=== PATIENT | male | born 1945 | race Caucasian/White ===

== ENCOUNTER 2017-01-15 12:07 | Inpatient (IN) | payer MEDICARE, OTHER ==
[~2017-01-15] VITALS: Ht 157.5 cm; Wt 71.6 kg
[2017-01-15] VITALS (11 sets, daily range): BP systolic 110–176; BP diastolic 72–100; PULSE 74–110; RESP 17–24; O2SAT 95–99
[~2017-01-15 12:07] MED LIST: ALLO300T29 PO; AMLO5TAB90 PO; ASPI81TA40 PO; ATOR40TA37 PO; HCTZ25 PO; HYDR1TAB69 PO; MELO7.5T3 PO; NOMED; OMEP40CA25 PO; PARO25TA5 PO; SYN25 PO; TADA10TA PO; VAL2 PO; VAS10 PO
--- NOTE | 2017-01-15 12:18 | ED.REPORT ---
HPI-Neurologic Deficit Date of Service Jan 15, 2017 ED Provider: Fabián Haque DO The patient is a 71 year old male who presents to the ED due to diffuse shaking onset earlier today. Associated symptoms include weakness in his legs, muscle cramping, twitching, and a headache last night. Pt is able to ambulate without difficulty although he states that his legs feel "heavy." His reports that he was been getting severe muscle cramps for the past several months. He denies slurred speech, change in vision, numbness, chest pain, sob, vomiting, diarrhea, cough, dysuria, and cold symptoms. The last time he felt completely normal was yesterday evening. Pt is currently on gabapentin for trigeminal neuralgia. His baseline BP is around 120/60. Nursing Notes Stated Complaint: BODY WEAKNESS Chief Complaint: Neuro Symptoms/ Deficits Nursing Notes Reviewed: Yes Allergies: Coded Allergies: No Known Allergies (Verified , 09/22/13) Scheduled Allopurinol-Expunged Drug, Do Not Renew! (Allopurinol-Expunged Drug, Do Not Renew!) 300 Mg Tablet 300 MG PO DAILY AmLODIPine-Expunged Drug, Do Not Renew! (AmLODIPine-Expunged Drug, Do Not Renew! ) 5 Mg Tablet 5 MG PO DAILY Aspirin-Expunged Drug, Do Not Renew! (Aspirin-Expunged Drug, Do Not Renew!) 81 Mg Tab.chew 81 MG PO DAILY Atorvastatin-Expunged Drug, Do Not Renew! (Atorvastatin-Expunged Drug, Do Not Renew!) 40 Mg Tablet 40 MG PO DAILY Enalapril-Expunged Drug, Do Not Renew! (Enalapril-Expunged Drug, Do Not Renew!) 10 Mg Tablet 20 MG PO DAILY Febuxostat (Uloric) 40 Mg Tablet 40 MG PO QAM Gabapentin (Gabapentin) 600 Mg Tablet 600 MG PO BID HCTZ-Expunged Drug, Do Not Renew! (Hydrodiuril-Expunged Drug, Do Not Renew!) 25 Mg Tablet 25 MG PO DAILY Levothyroxine-Expunged Drug, Do Not Renew! (Synthroid-Expunged Drug, Do Not Renew!) 25 Mcg Tablet 50 MCG PO DAILYAC 0.025 MG = 25 MCG Meloxicam-Expunged Drug, Do Not Renew! (Meloxicam-Expunged Drug, Do Not Renew!) 7.5 Mg Tablet 15 MG PO DAILY Omeprazole-Expunged Drug, Do Not Renew! (Omeprazole-Expunged Drug, Do Not Renew! ) 40 Mg Capsule.dr 40 MG PO DAILY Paroxetine Hc-Expunged Drug, Do Not Renew! (Paxil Cr-Expunged Drug, Do Not Renew !) 25 Mg Tab.sr.24h 25 MG PO DAILY Tadalafil (Cialis) 10 Mg Tablet 10 MG PO DAILY Scheduled PRN Diazepam-Expunged Drug, Do Not Renew! (Diazepam-Expunged Drug, Do Not Renew!) 2 Mg Tablet 2 MG PO PRN For Anxiety Hydrocod/APAP-Expunged, Do Not Renew! (VICODIN 5/500-Expunged Drug, Do Not Renew ) 1 Each Tablet 1 TAB PO Q6H PRN PRN For Pain Take every 6 hours as needed for pain. Miscellaneous Medications No Historical Medication (No Historical Medication) Ea General Time Seen by Provider: 12:03 Chief Complaint Other (bilateral shaking in extremities) Hx Obtained From: Patient, Spouse Arrived By: Walk-in Sudden in Onset?: Yes Onset Occurred: 5 - 8 hours ago Symptom Duration: Since onset Progression Since Onset: Gradually worsening Recent Healthcare: No recent doctor visit, No recent hospitalization Similar Sx Previous: No Past Medical History Past Medical History trigeminal neuralgia Past Surgical History laminectomy /fx legs Smoking History Unknown if Ever Smoker Social History Alcohol Use: 1-3 per week Other Social History: Good social support, , Local resident Review of Systems Respiratory: Denies: Non-productive cough, Shortness of breath Cardiovascular: Denies: Chest pain GI: Denies: Diarrhea, Vomiting Neurologic: Reports: Dizziness, Headache, Lightheaded, Shaking, Weakness, Denies: Change LOC, Numbness, Problem walking, Seizure, Slurred speech Complete sys rev & neg: except as marked. Ears / Nose / Throat: Denies: Nasal congestion Male: Denies Dysuria Physical Exam Initial Vital Signs Vital Signs (First) Date Time Temp Pulse Resp B/P Pulse Ox O2 Delivery O2 Flow Rate FiO2 01/15/17 12:16 36.9 110 18 176/100 99 Room Air Initial VS: Reviewed General/Constitutional: Awake, Alert, Cooperative, Not toxic appearing Head / Eyes: Atraumatic, Normocephalic, PERRL, EOMI Respiratory / Chest: Atraumatic, No respiratory distress Cardiovascular: Heart sounds NL, No gallop, No murmurs, No rubs hypertensive Neurologic: Oriented X3, Speech NL, No motor deficits Neck: Atraumatic, Supple Abdomen: Atraumatic, Soft Upper Extremity / MS: Atraumatic, Inspection NL, No deformity Lower Extremity / Pelvis / MS: Atraumatic, Inspection NL, No deformity Skin: Atraumatic, Warm, Dry Interpretation & Diagnostics Lab Results Interpretation Result Diagram: 01/15/17 1214 01/15/17 1214 Test 01/15/17 12:14 01/15/17 13:22 White Blood Count 9.4th/mm3 (3.8-10.1) Red Blood Count 4.81mil/mm3 (4.40-5.80) Hemoglobin 15.0g/dL (13.8-17.2) Hematocrit 41.6% (41.0-50.0) Mean Corpuscular Volume 86.5fL (81-100) Mean Corpuscular Hemoglobin 31.2pg (27.0-35.0) Mean Corpuscular Hemoglobin Concent 36.1% (32.0-37.0) Red Cell Distribution Width 12.0% (12.3-15.4) Platelet Count 337bil/L (150-400) Neutrophils (%) (Auto) 72.0% (40-74) Lymphocytes (%) (Auto) 15.5% (14-46) Monocytes (%) (Auto) 10.6% (4-12) Eosinophils (%) (Auto) 0.8% (0-5) Basophils (%) (Auto) 0.4% (0-3) Sodium Level 126mEq/L (134-144) Potassium Level 4.9mEq/L (3.5-5.2) Chloride Level 89mEq/L (97-108) Carbon Dioxide Level 20mmol/L (18-29) Blood Urea Nitrogen 20mg/dL (8-27) Creatinine 1.21mg/dL (0.76-1.27) Estimat Glomerular Filtration Rate 63mL/min (>59) Glucose Level 96mg/dL (60-99) Calcium Level 9.3mg/dL (8.5-10.1) Magnesium Level 1.3mg/dL (1.6-2.6) Total Bilirubin 1.0mg/dL (0.0-1.2) Aspartate Amino Transf (AST/SGOT) 31U/L (0-50) Alanine Aminotransferase (ALT/SGPT) 31U/L (0-44) Alkaline Phosphatase 99U/L (25-160) Troponin T < 0.010ug/L (0.0-0.011) Total Protein 7.5g/dL (6.4-8.4) Albumin 4.8g/dL (3.4-5.0) Hold Johns Top Tube Received (Received) Urine Osmolality 177mOs/kH2O (250-1200) Urine Random Creatinine 25mg/dL (22-328) Urine Random Sodium 24mEq/L Hold Urine Received (Received) Osmolality 270 (275-300) ECG Interpretation ECG Interpretation: nonspecific ST changes Time: 01:06 Interpreted by: ED physician Normal ECG Interpretation: Normal sinus rhythm (rate 78) X-Ray Chest Interpretation Chest Xray Interpretation: IMPRESSION: Negative chest. No acute cardiopulmonary process is evident. Dictated by: Tru Carrillo M.D. on 01/15/2017 at 13:21 Approved by: Tru Carrillo M.D. on 01/15/2017 at 13:22 View: Portable Interpretation / Wet Read by: Interpret - Radiologist Re-Eval/Medical Decision Med Decision/Clinical Course Symptomatic hyponatremia. Will admit. Re-Evaluation/Progress : Time of Eval: 13:18 Re-Evaluation/Progress Note: Pt rechecked. Informed pt of low sodium levels and need for admission. Pt understands and agrees with plan. All questions addressed. Plan to discuss with surface miner. NIH Stroke Scale : Level of Consciousness: Alert and responsive (0) Ask Month & Age: Both questions right (0) Open/Close Eyes/Hand Cooky Packer: Performs both tasks (0) Horizontal EO Movements: None (0) Visual Nagel: No visual loss (0) Facial Palsy: Normal symmetry (0) Right Arm Motor Drift (10s): No drift 10 sec (0) Left Arm Motor Drift (10s): No drift 10 sec (0) Right Leg Motor Drift (5s): No drift 5 sec (0) Left Leg Motor Drift (5s): No drift 5 sec (0) Limb Ataxia FNF/Heel-Stratton: No ataxia (0) Sensation (Arms/Legs/Face): No sensory loss (0) Language Aphasia: No aphasia, normal (0) Dysarthria: No dysarthria, normal (0) Extinction/Inattention: No exctinct/inattent (0) NIHSS Score: 0 Time NIHSS Performed: 12:15 Date NIHSS Performed: Jan 15, 2017 Consultation #1: Referral / Consult Name: Alvaro Najera DO Consulted With: Nephrology Call Returned at: 13:33 Note: Case discussed. Dr. Najera advises to not give the patient IV fluids. Discontinue hydrochlorothiazide Consultation #2: Referral / Consult Name: Wallace Noriega DO Consulted With: Hospitalist Call Returned at: 13:58 Accountant Clerk: Accepts admit Note: Case discussed. Dr. Noriega accepts admit. Counseled Regarding: Diagnosis, Lab results, Need for admission Discharge & Departure Impression: Primary Impression: Hyponatremia Disposition: ADMITTED TO HOSPITAL Discharge Condition All VS Reviewed: Yes Condition: Stable Referrals: Kevin Mendoza MD (PCP) Scribe Attestation Portion of this note were transcribed by Helen Vazquez. I, Dr. Haque, personally performed the history, physical exam, and medical decision-making: I reviewed and confirmed the accuracy for the information in the transcribed note. Signed by: annalee Pressley, 01/15/17 1300 copies to: Kevin Mendoza MD, Timothy S DO Jan 15, 2017 12:18 Helen Vazquez Jan 15, 2017 12:20
[2017-01-15] MEDS ORDERED: 0.9% Sodium Chloride 1,000 ML IV ONE (12:30)
[2017-01-15 12:34] LABS: BASOPHILS % (AUTO) 0.4 % (0-3); EOSINOPHILS % (AUTO) 0.8 % (0-5); MONOCYTES % (AUTO) 10.6 % (4-12); Mean Corpuscular Hemoglobin 31.2 pg (27.0-35.0); Mean Corpuscular Volume 86.5 fL (81-100); Platelet Count 337 bil/L (150-400)
[2017-01-15 12:57] LABS: Magnesium 1.3 mg/dL (1.6-2.6)
[2017-01-15 13:01] LABS: TROPONIN T < 0.010 ug/L (0.0-0.011)
[2017-01-15] MEDS ORDERED: Magnesium Sulf 2 Gm/50mL Water 2 GM in IV Premix 1 EACH IV ONE (13:10)
[2017-01-15] MEDS ORDERED: FEBU40TA PO (13:32)
[2017-01-15] MEDS ORDERED: GABA600T2 PO (13:32)
[2017-01-15 14:09] LABS: OSMOLALITY, URINE 177 mOs/kH2O (250-1200)
[2017-01-15] MEDS ORDERED: Polyethylene Glycol (PEG) 17 Gm Powder PO PRN (14:10)
[2017-01-15] MEDS ORDERED: Alum-Mag Hydrox-Simeth 30 mL Suspension PO PRN (14:10)
[2017-01-15] MEDS ORDERED: Ondansetron 2 mg/mL 2 mL Inj IVPUSH PRN (14:10)
--- NOTE | 2017-01-15 14:15 | PCM.HPMED ---
Subjective Date of Service Jan 15, 2017 Primary Provider: Admitting Physician: Primary Care Physician: Kevin Mendoza MD Attending Physician: Chief Complaint: Muscle spasms History of Present Illness: Patient is a 71-year-old male in overall excellent health past medical history significant for hypertension hyperlipidemia gout and hypothyroidism presenting today for history of worsening muscle cramping and spasm involving his upper and lower extremities. Patient notes the symptoms have been present for many months but have worsened progressively and became so severe over the last couple days especially earlier today that he finally needed to seek medical attention. Initially he believed he was not getting enough fluid and when drinking more water was not helpful he transitioned to Pedialyte she thought were more effectively replete his electrolytes, this to however was not effective and he notes the muscle spasms have only worsened in past weeks. He denies any overt chest pain though the muscles of his chest as well have been intermittently twitchy. Additionally denies any numbness or weakness of either upper or lower extremities denies any slurring of speech or visual changes lightheadedness or changes in cognition. He does experience intermittent headaches related to trigeminal neuralgia for which he takes gabapentin for this is been stable at the very least. Does not drink a large amount of alcohol but does note drinking 3 beers yesterday, that this is an unusual event for him. He notes he drinks probably about 2 L of fluid per day which is now predominantly Pedialyte, not believe he drinks an excessive amount. He is noted no changes in his bowels denies diarrhea or constipation. Additionally denies any fever sweats or chills also denies any shortness of breath. Is able to move all extremities he notes feeling a heaviness or weakness in both upper and lower limbs which is also seem to progress over the past weeks to months. During my examination on hospital floor he is lying comfortable in his hospital bed as he recounts history. Review of Systems: A 10 point review of systems was conducted and entirely negative excepting pertinent positives and negatives included above history of present illness Allergies Coded Allergies: allopurinol (Verified Allergy, Unknown, Feels unwell, 01/15/17) Home Medications Uloric AmLODIPine 5 Mg Tablet 5 MG PO DAILY Aspirin 81 Mg Tab.chew 81 MG PO DAILY [id number] Mg Tablet 40 MG PO DAILY Enalapril- 10 Mg Tablet 20 MG PO DAILY Febuxostat (Uloric) 40 Mg Tablet 40 MG PO QAM Gabapentin (Gabapentin) 600 Mg Tablet 600 MG PO BID HCTZ- 25 Mg Tablet 25 MG PO DAILY Levothyroxine 25 Mcg Tablet 50 MCG PO DAILYAC 0.025 MG = 25 MCG Meloxicam-7.5 Mg Tablet 15 MG PO DAILY Omeprazole-40 Mg Capsule.dr 40 MG PO DAILY Paroxetine Hc- 25 Mg Tab.sr.24h 25 MG PO DAILY Tadalafil (Cialis) 10 Mg Tablet 10 MG PO DAILY Scheduled PRN Diazepam- 2 Mg Tablet 2 MG PO PRN For Anxiety Hydrocod/APAP-1 Each Tablet 1 TAB PO Q6H PRN PRN For Pain Take every 6 hours as needed for pain. PMH trigeminal neuralgia Hypertension Hyperlipidemia Hypothyroidism Gout Surgical History laminectomy FX leg Melanoma removal Mastoid surgery Family History Mother had Parkinson's disease Social History Hx Alcohol Use: Yes Hx Substance Use: Yes (Beer, socially. Denies daily or frequent use. ) Hx Tobacco Use: No Smoking Status: Unknown if Ever Smoker Exam Vital Signs Vital Sign - Last Date Time Temp Pulse Resp B/P Pulse Ox O2 Delivery O2 Flow Rate FiO2 01/15/17 13:44 81 24 110/74 Room Air 01/15/17 13:09 96 01/15/17 12:16 36.9 General: Alert, Oriented X3, Cooperative, No Acute Distress Eyes: PERRLA, EOMI Mouth: Mucous Membr Moist/Plum Neck: Supple Chest & Lungs: Clear to auscultation & percussion, No adventitious breath sounds Cardiovascular: Regular Rate/Rhythm Abdomen: Non-tender, Non-distended Extremities: No cyanosis/clubbing/edma bilat, Other (there is generalized spasm perhaps mildly appreciated but more significantly experienced as a sensation by patient) Neurological: Grossly Neurologically Intact, Cranial Nerves 2-12 Intact, Normal Speech, Cerebellar Function nl Finger-Nose Lab and Diagnostics Result Diagram: 01/15/17 1214 01/15/17 1214 Assessment & Plan This 71-year-old male past medical history significant for hypertension, hyperlipidemia, hypothyroidism, and trigeminal neuralgia presenting with progressive history of muscle tremor and spasms noted to be hyponatremic on presentation admitted for further medical evaluation and management. 1. Hyponatremia of unknown chronicity - Patient states his last routine lab work was done in August of this year, proximally 5 months prior was noted to be normal at that time. He has no history of hyponatremia in the past and is unclear to discern if this is a more acute problem or patient's symptoms indeed marked to beginning of his low sodium levels which would have been months prior - Nephrology has been consulted and their advice is greatly appreciated. On their recommendations we will keep patient fluid restricted to 1200 cc of fluid per day - We will continue to closely monitor sodium levels - Monitor patient on telemetry for any evidence of arrhythmia - Initial osmolality and sodium studies of serum and urine may support SIADH given lowers urine osmolality and serum. - We will hold hydrochlorothiazide at home appraisal which both may exacerbate this condition - Again appreciating the consultation of nephrology we will consider a possible underlying etiologies 2. Hypertension - Blood pressure stable at this time we will continue patient's other blood pressure medications excepting hydrochlorothiazide 3. Hypothyroidism - An alternative cause for patient's weakness and spasticity may be related to thyroid functioning - Continue patient's home dosage of levothyroxine with iron studies are pending 4. Trigeminal neuralgia - We will continue gabapentin at this time condition appears stable Disposition: Given severity of symptoms and of depressed sodium level anticipate patient will be a greater than 2 mid nights for achieving medical stabilization therefore made a full admission. Pain Evaluation: Adequate Pain Control GI Prophylaxis: Not indicated VTE Mechanical Devices: Anti-Embolic stockings Resuscitation Status: CPR: Attempt Resuscitation Time spent 55 minutes Wallace Noriega DO Jan 15, 2017 14:15
--- NOTE | 2017-01-15 14:24 | DRSVH ---
PROCEDURE: X-RAY CHEST ONE VIEW, PORTABLE ([id number]) INDICATIONS: weakness TECHNIQUE: One view of the chest was acquired. COMPARISON: None. FINDINGS: Surgical changes and devices: None. Lungs and pleura: No pleural effusions or pneumothorax. Lungs are clear. Mediastinum: Mediastinal contours appear normal. Heart size is normal. Bones and chest wall: No suspicious bony lesions. Overlying soft tissues appear unremarkable. IMPRESSION: Negative chest. No acute cardiopulmonary process is evident. Dictated by: Tru Carrillo M.D. on 01/15/2017 at 13:21 Approved by: Tru Carrillo M.D. on 01/15/2017 at 13:22
--- NOTE | 2017-01-15 15:12 | NUR ---
Admission Patient arrived from ED to room. Does admit to feeling unsteady on his feet. Describes them as feeling "heavy". Oriented patient to room and hospital policies. Denies pain. Admits to feeling "tired". Continue frequent rounding.
--- NOTE | 2017-01-15 16:11 | PCM.CHPMED ---
Subjective Date of Service: Jan 15, 2017 Provider requesting consult: Fabián Haque DO Primary Physician: Admitting Physician: Wallace Noriega DO Primary Care Physician: Kevin Mendoza MD Attending Physician: Wallace Noriega DO Chief Complaint: Chief Complaint: "Muscle twitching" History of Present Illness: NEPHROLOGY CONSULTATION NOTE Patient is a 71 year old male with a history of HTN, HLP, hypothyroidism, and gout. He presented to [facility] on 01/15/17 after a near syncopal episode that occurred while driving earlier today. The patient and his were returning from [facility]. As he was driving down [employer] [address] he "passed out" and his quickly awakened him. This was enough for his to bring him to the ED. Last night he reports feeling a sensation of twitching and jumping in his nerves and muscles from his neck to his waist. This kept him awake all night and was ongoing when I saw the patient in the ED. Patient also feels like his legs are heavy and while he had a mild headache last night, has had no headache today. There have been no recent sick contacts and he has not had any cold or flu-like symptoms. He denies any visions changes, dizziness/lightheadedness, nausea, vomiting, chest pain, shortness of breath, fever or chills. He has never experienced a sensation like this before but has been struggling with muscle cramping for the last four months. Labs done in August were reportedly normal, but none of that data is available to me today. He denies any recent diet or appetite changes. He has been trying to keep himself hydrated both with water and Pedialyte. The patient has never experienced anything like this before. He does not recall a time where he was told his electrolytes were abnormal. He denies any history of kidney disease both personally and in his family. He has never seen a crocodile farmer nor does he know anyone in his family that has. Review of Systems: Constitutional: Reports: Weakness, Denies: Chills, Fever Eyes: Denies: Blurred Vision, Double Vision Neck: Denies: Pain Cardiovascular: Denies: Chest Pain, Edema, Irregular Heart Rate Respiratory: Denies: Cough, SOB with Exertion, Shortness of Breath Gastrointestinal: Denies: Abdominal Pain, Nausea, Vomiting Genitourinary: Denies: Dysuria, Hematuria Skin: Denies: Itching, Rash Neurological: Denies: Confusion, Dizziness, Seizures PMH Past Medical History Hypertension (diagnosed at age 21) Hyperlipidemia Gout Hypothyroidism GERD History of prostatitis Depression with anxiety Osteoarthritis Surgical 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 Tonsillectomy Back surgery Home Medications From the medical record (patient struggled to verify all the info): Allopurinol 300 mg daily Amlodipine 5 mg daily Hydrochlorothiazide 25 mg daily Aspirin 81 mg daily Atorvastatin 40 mg daily Diazepam 2 mg PRN Enalapril 10 mg daily Uloric 40 mg daily Gabapentin 600 mg BID Levothyroxine 50 mcg daily Meloxicam 7.5 mg PRN Omeprazole 40 mg daily Paxil 25mg daily Cialis 10 mg daily Vicodin 5/500 mg Q6 PRN Allergies: Coded Allergies: No Known Allergies (Verified , 09/22/13) Family History Family History No known family history of kidney or electrolyte disorders Hypertension on both sides of the family Social History Hx Alcohol Use: Yes (1-2 mixed drinks daily, up to 3-4 on the weekends)Hx Substance Use: NoHx Tobacco Use: No Smoking Status: Never Smoker Living Arrangement: with Family Exam Vital Signs Vital Sign - Last Date Time Temp Pulse Resp B/P Pulse Ox O2 Delivery O2 Flow Rate FiO2 01/15/17 15:16 36.9 81 18 122/84 95 Room Air General: Alert, Oriented X3, Cooperative, No Acute Distress Head: Normal Eyes: PERRLA, EOMI, Scleral Anicteric Mouth: Mucous Membr Moist/[place]odgen Neck: Supple, No Thyromegaly Chest & Lungs: Clear to auscultation & percussion, No adventitious breath sounds Cardiovascular: Regular Rate/Rhythm, No Murmurs/Rubs/Gallops Pulses: Radial (normal bilaterally), Dorsalis Pedis (normal bilaterally) Abdomen: Non-tender, Non-distended, No masses, No hepatosplenomegaly, Normoactive bowel tones Genitourinary: [place] Absent Extremities: No cyanosis/clubbing/edma bilat Skin: Other (apparent suntan; normal skin turgor) Neurological: Grossly Neurologically Intact, Cranial Nerves 2-12 Intact, Normal Speech Lab and Diagnostics Result Diagram: 01/15/17 1214 01/15/17 1214 Assessment & Plan Assessment Patient is a 71 year old male with a history of HTN, HLP and gout. Presented to [facility] after near-syncopal episode with muscle twitching. Hyponatremia and hypomagnesemia noted on labs. Admitted obs for further management. Nephrology service consulted due to hyponatremia. 1) Hyponatremia, presumed acute. 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 - No baseline outpatient labs found. Serum sodium 126. Urine sodium 24. Serum Osm 270. Urine Osm 177. - Stop hydrochlorothiazide and omeprazole. - Fluid restrict to 1200 cc. - No additional IV fluids. - Repeat BMP tomorrow AM. 2) Hypomagnesemia. - Repleted in ED. - Continue to monitor with labs. 3) Hypertension. - Will need to monitor BP closely as we are discontinuing HCTZ. - Close outpatient follow up with PCP to determine future medication regimen. Problems: Nelida Velazquez DO Jan 15, 2017 15:42
[2017-01-15] MEDS ORDERED: AMLO5TAB2 PO (16:43)
[2017-01-15] MEDS ORDERED: DIAZ2TAB2 PO (16:43)
[2017-01-15] MEDS ORDERED: LIP40 PO (16:43)
[2017-01-15] MEDS ORDERED: ASPI-973 PO (16:43)
[2017-01-15] MEDS ORDERED: HYDR25TA4 PO (16:45)
[2017-01-15] MEDS ORDERED: ENAL20TA PO (16:45)
[2017-01-15] MEDS ORDERED: OMEP40CA36 PO (16:49)
[2017-01-15] MEDS ORDERED: MELO-253 PO (16:49)
[2017-01-15] MEDS ORDERED: TADA10TA PO (16:56)
[2017-01-15] MEDS ORDERED: LEVO50TA6 PO (17:01)
[2017-01-15] MEDS ORDERED: PARO25TA15 PO (17:01)
--- NOTE | 2017-01-15 19:47 | NUR ---
HOME MEDICATIONS Hospital pharmacy does not stock pts Uloric and Paxil medications. RN asked pt if someone could bring in his home medications for hospital use. Pt will call family member to bring medications, then meds will be verified w/ pharmacy.
[2017-01-15 19:51] LABS: APPEARANCE,URINE CLEAR (CLEAR,HAZY); COLOR,URINE YELLOW (YELLOW); OCCULT BLOOD,URINE NEGATIVE (NEGATIVE); UROBILINOGEN,URINE NORMAL (NORMAL)
[2017-01-16] VITALS (7 sets, daily range): BP systolic 105–122; BP diastolic 69–81; PULSE 64–77; RESP 16–18; O2SAT 93–99
[2017-01-16 06:39] LABS: Magnesium 1.9 mg/dL (1.6-2.6)
[2017-01-16] MEDS ORDERED: PAROXETINE HCL 25 MG PO SCH (08:30)
--- NOTE | 2017-01-16 11:57 | NUR ---
Social Work-initial assessment/ discharge: Data:See initial assessment. Pt is a 71 y/o male who was admitted on 01/15/17 for hyponatremia per H&P. Pt's insurance is [facility] and [facility] and PCP is Kevin Lombardi MD. EMR reviewed. Pt's readmission score is 3. SW met with pt and at bedside, SW role explained. Pt is alert and oriented x3. Pt resides at home with his where he remains independent with ADls. Pt drives and does not use any DME. Pt has no HH Or SNF history. Pt has no reinforcing bar setter care or VA benefits. SW discussed DPOA/ advanced directive, pt confirms they have completed this, SW enocuraged a copy to be brought in. pt's to provide transport home. Pt has been up independent in his room. No needs identified. All updated and agreeable to plan. Assessment:pt who is independent at baseline. Plan:Pt to discharge home today via POV. No needs identified. All updated and agreeable to plan. ALLEN Jones Addendum: 01/16/17 at 1239 by JOE HERNANDEZ SS Amended: Links added. Addendum: 01/16/17 at 1627 by JOE HERNANDEZ SS SW updated pt is not discharging today. SW will continue to follow. ALLEN Jones
--- NOTE | 2017-01-16 16:36 | PCM.PNMED ---
Subjective Date of Service Jan 16, 2017 Subjective Patient reports no sick significant improvement overnight and muscle spasms. Continuing to experience intermittent locking of hands feet spasm of calf muscles with motion. This does not occur consistently but still concerning given tie frequency and unpredictability. Additionally notes still feeling much weaker than his previous baseline. He is denying fever chills over. Still urinating normally. Denies any shortness of breath or chest pain palpitations. Exam Vital Signs Vital Sign - Last Date Time Temp Pulse Resp B/P Pulse Ox O2 Delivery O2 Flow Rate FiO2 01/16/17 13:10 36.7 72 18 105/69 96 Room Air Intake and Output 01/15/17 01/15/17 01/16/17 Cumulative From/Thru 15:00 23:00 07:00 01/15/17 12:16 - 01/16/17 06:27 Intake Total 1050 ml 400 ml 200 ml 1650 ml Output Total 800 ml 650 ml 1800 ml 3250 ml Balance 250 ml -250 ml -1600 ml -1600 ml Intake Oral 400 ml 200 ml 600 ml IV Total 1050 ml 1050 ml Output Urine Total 800 ml 650 ml 1800 ml 3250 ml # Voids 1 1 Exam General: Alert, Oriented X3, Cooperative, No Acute Distress Eyes: PERRLA, EOMI Mouth: Mucous Membr Moist/[place] Abdomen: Non-tender, Non-distended Extremities: No overt muscle spams noted on my examination, but pt report subjectively feeling facilitations, notes previous hands had "locked up" Neurological: Grossly Neurologically Intact IVs and Medications Medications Reviewed: Medications were reviewed in detail Lab and Diagnostics Result Diagram: 01/15/17 1214 01/16/17 0604 Assessment & Plan This 71-year-old male past medical history significant for hypertension, hyperlipidemia, hypothyroidism, and trigeminal neuralgia presenting with progressive history of muscle tremor and spasms noted to be hyponatremic on presentation admitted for further medical evaluation and management. 1. Hyponatremia of unknown chronicity - Patient states his last routine lab work was done in August of this year, proximally 5 months prior was noted to be normal at that time. He has no history of hyponatremia in the past and is unclear to discern if this is a more acute problem or patient's symptoms indeed marked to beginning of his low sodium levels which would have been months prior - Nephrology has been consulted and their advice is greatly appreciated. On their recommendations we will keep patient fluid restricted to 1200 cc of fluid per day. Believe patient to be stable for discharge as soon as today - We will continue to closely monitor sodium levels, improved overnight to 133, from 126 on admission. - Monitored patient on telemetry for any evidence of arrhythmia which did not present we will discontinue at this time with improving sodium. - Initial osmolality and sodium studies of serum and urine may support SIADH given lowers urine osmolality and serum. Await further considerations by renal specialist. - We will continue to hold hydrochlorothiazide which may exacerbate this condition 2. Muscle spasm - Etiology remains unclear - Even diffuse nature involving bilateral upper and lower extremities it certainly seems a possibility that this is related to electrolyte imbalance - Improvement of patient's sodium level has not led to improvement in condition at this time but it may be, Improved that improvement will be delayed somewhat and this was still the cause - Consider alternative diagnoses will be consulting neurology for further evaluation and recommendations. 3. Hypothyroidism - An alternative cause for patient's weakness and spasticity may be related to thyroid functioning - Continue patient's home dosage of levothyroxine with iron studies are pending 4. Trigeminal neuralgia - We will continue gabapentin at this time condition appears stable 5. Hypertension - Blood pressure stable at this time we will continue patient's other blood pressure medications excepting hydrochlorothiazide Disposition: Given severity of symptoms and of depressed sodium level anticipate patient will be a greater than 2 mid nights for achieving medical stabilization therefore made a full admission. Pain Evaluation: Adequate Pain Control GI Prophylaxis: Not indicated VTE Mechanical Devices: Anti-Embolic stockings Resuscitation Status: CPR: Attempt Resuscitation Time spent 30 minutes Wallace Noriega DO Jan 16, 2017 16:36
[2017-01-16] MEDS ORDERED: PAROXETINE 25 MG PO SCH (21:00)
--- NOTE | 2017-01-16 21:30 | NUR ---
Uneventful shift Labs improving. Next check in AM. Fluid restriction lifted. Tele monitoring continues. IND act in room. Reports only minor muscle spasms this AM.
[2017-01-17 00:56] VITALS: BP 106/72; PULSE 71; RESP 18; O2SAT 97
[2017-01-17 04:53] VITALS: BP 104/67; PULSE 68; O2SAT 97
--- NOTE | 2017-01-17 06:05 | NUR ---
Activity Pt up independent in room. Denies pain, stating does get muscle spasm in hands and legs. Call light within reach, frequent rounding.
[2017-01-17 06:09] VITALS: PULSE 79
[2017-01-17] MEDS ORDERED: ULORIC 40 MG PO SCH (08:30)
[2017-01-17 09:19] VITALS: PULSE 92
[2017-01-17 09:26] VITALS: BP 117/75; PULSE 82; RESP 18; O2SAT 96
--- NOTE | 2017-01-17 10:29 | PCM.DC.MED ---
Discharge Summary Date of Service Jan 17, 2017 Dates of Hospitalization Date of Hospital Admission Jan 15, 2017 at 14:23 Date of Discharge: Jan 17, 2017 Providers: Admitting Physician: Wallace Noriega DO Primary Care Physician: Kevin Mendoza MD Attending Physician: Wallace Noriega DO Diagnosis at Time of Discharge Diagnosis at Time of Discharge 1. Hyponatremia secondary to diuretic use (HCTZ) 2. Acute renal insufficiency: chronic condition. Follows with Nephrology out patient. 3. Hypertension. Consultations Nephrology- Dr. Najera Brief History Patient is a 71-year-old male in overall excellent health past medical history significant for hypertension hyperlipidemia gout and hypothyroidism presenting today for history of worsening muscle cramping and spasm involving his upper and lower extremities. Patient notes the symptoms have been present for many months but have worsened progressively and became so severe over the last couple days especially earlier today that he finally needed to seek medical attention. Initially he believed he was not getting enough fluid and when drinking more water was not helpful he transitioned to Pedialyte she thought were more effectively replete his electrolytes, this to however was not effective and he notes the muscle spasms have only worsened in past weeks. He denies any overt chest pain though the muscles of his chest as well have been intermittently twitchy. Additionally denies any numbness or weakness of either upper or lower extremities denies any slurring of speech or visual changes lightheadedness or changes in cognition. He does experience intermittent headaches related to trigeminal neuralgia for which he takes gabapentin for this is been stable at the very least. Does not drink a large amount of alcohol but does note drinking 3 beers yesterday, that this is an unusual event for him. He notes he drinks probably about 2 L of fluid per day which is now predominantly Pedialyte, not believe he drinks an excessive amount. He is noted no changes in his bowels denies diarrhea or constipation. Additionally denies any fever sweats or chills also denies any shortness of breath. Is able to move all extremities he notes feeling a heaviness or weakness in both upper and lower limbs which is also seem to progress over the past weeks to months. During my examination on hospital floor he is lying comfortable in his hospital bed as he recounts history. Hospital Course 1. Hyponatremia of unknown chronicity - Patient states his last routine lab work was done in August of this year, proximally 5 months prior was noted to be normal at that time. He has no history of hyponatremia in the past and is unclear to discern if this is a more acute problem or patient's symptoms indeed marked to beginning of his low sodium levels which would have been months prior - Nephrology has been consulted and their advice is greatly appreciated. On their recommendations we will keep patient fluid restricted to 1200 cc of fluid per day. Believe patient to be stable for discharge as soon as today - We will continue to closely monitor sodium levels, improved overnight to 133, from 126 on admission. - Monitored patient on telemetry for any evidence of arrhythmia which did not demonstrate any concerning findings. - We will continue to hold hydrochlorothiazide which may exacerbate this condition on discharge. - Condition resolved, Sodium 139 on day of discharge. 2. Muscle spasm - As condition resolved with stabilization of sodium level, this was most certainly the cause. - see MGMT plans noted above. 3. Hypothyroidism - An alternative cause for patient's weakness and spasticity may be related to thyroid functioning - Normal TSH and T4 studies noted. 4. Trigeminal neuralgia - We will continue gabapentin at this time condition appears stable 5. Hypertension - Blood pressure stable at this time we will continue patient's other blood pressure medications excepting hydrochlorothiazide Exam Vital Signs (Last) Date Time Temp Pulse Resp B/P Pulse Ox O2 Delivery O2 Flow Rate FiO2 01/17/17 09:26 36.9 82 18 117/75 96 Room Air Test 01/15/17 12:14 01/15/17 13:22 01/16/17 06:04 01/17/17 08:50 White Blood Count 9.4th/mm3 (3.8-10.1) Red Blood Count 4.81mil/mm3 (4.40-5.80) Hemoglobin 15.0g/dL (13.8-17.2) Hematocrit 41.6% (41.0-50.0) Mean Corpuscular Volume 86.5fL (81-100) Mean Corpuscular Hemoglobin 31.2pg (27.0-35.0) Mean Corpuscular Hemoglobin Concent 36.1% (32.0-37.0) Red Cell Distribution Width 12.0% (12.3-15.4) Platelet Count 337bil/L (150-400) Neutrophils (%) (Auto) 72.0% (40-74) Lymphocytes (%) (Auto) 15.5% (14-46) Monocytes (%) (Auto) 10.6% (4-12) Eosinophils (%) (Auto) 0.8% (0-5) Basophils (%) (Auto) 0.4% (0-3) Total Bilirubin 1.0mg/dL (0.0-1.2) Aspartate Amino Transf (AST/SGOT) 31U/L (0-50) Alanine Aminotransferase (ALT/SGPT) 31U/L (0-44) Alkaline Phosphatase 99U/L (25-160) Troponin T < 0.010ug/L (0.0-0.011) Total Protein 7.5g/dL (6.4-8.4) Albumin 4.8g/dL (3.4-5.0) Thyroid Stimulating Hormone (TSH) 2.000uIU/mL (0.450-4.500) Free Thyroxine 1.58ng/dL (0.82-1.77) Hold Johns Top Tube Received (Received) Urine Color Yellow (YELLOW) Urine Appearance Clear (CLEAR,HAZY) Urine pH 7.0 (5.0-8.0) Urine Specific [place] <1.005 (1.003-1.035) Urine Protein Negativemg/dL (NEG,TRACE) Urine Glucose (UA) Negativemg/dL (NEGATIVE) Urine Ketones Negativemg/dL (NEGATIVE) Urine Occult Blood Negative (NEGATIVE) Urine Nitrite Negative (NEGATIVE) Urine Bilirubin Negative (NEGATIVE) Urine Urobilinogen Normalmg/dL (NORMAL) Urine Leukocyte Esterase Negative (NEGATIVE) Urine RBC 0-2/hpf (0-2) Urine WBC 0-5/hpf (0-5) Urine Epithelial Cells Occasional/hpf (NONE-MOD) Urine Crystals None seen (NONE SEEN) Urine Bacteria None/hpf (NONE-FEW) Urine Hyaline Casts None/lpf (NONE) Urine Granular Casts None seen (NONE SEEN) Urine Waxy Casts None seen (NONE SEEN) Urine Red Blood Cell Casts None seen (NONE SEEN) Urine White Blood Cell Casts None seen (NONE SEEN) Urine Mucus None seen (None Seen) Urine Trichomonas None seen (NONE SEEN) Urine Yeast None (NONE SEEN) Urinalysis Comment None Urine Culture Reflexed Not indicated Urine Osmolality 177mOs/kH2O (250-1200) Urine Random Creatinine 25mg/dL (22-328) Urine Random Sodium 24mEq/L Hold Urine Received (Received) Osmolality 270 (275-300) Magnesium Level 1.9mg/dL (1.6-2.6) Sodium Level 139mEq/L (134-144) Potassium Level 4.3mEq/L (3.5-5.2) Chloride Level 100mEq/L (97-108) Carbon Dioxide Level 25mmol/L (18-29) Blood Urea Nitrogen 30mg/dL (8-27) Creatinine 1.38mg/dL (0.76-1.27) Estimat Glomerular Filtration Rate 54mL/min (>59) Glucose Level 162mg/dL (60-99) Calcium Level 9.5mg/dL (8.5-10.1) General: Alert, Oriented X3, Cooperative, No Acute Distress Cardiovascular: Regular Rate/Rhythm Neurological: Grossly Neurologically Intact, Other (muscle spams reoslved) Discharge Medications Discharge Medications Amlodipine (Amlodipine) 5 Mg Tablet 5 MG PO DAILY (Reported) Aspirin (Aspirin) 81 Mg Tablet 81 MG PO DAILY (Reported) Atorvastatin (Lipitor) 40 Mg Tablet 40 MG PO HS (Reported) Enalapril Maleate (Enalapril Maleate) 20 Mg Tablet 20 MG PO DAILY (Reported) Febuxostat (Uloric) 40 Mg Tablet 40 MG PO QAM (Reported) Gabapentin (Gabapentin) 600 Mg Tablet 600 MG PO BID (Reported) Hydrochlorothiazide (Hydrochlorothiazide) 25 Mg Tablet 25 MG PO DAILY (Reported ) Levothyroxine (Levothyroxine) 50 Mcg Tablet 50 MCG PO DAILY (Reported) Meloxicam (Meloxicam) 15 Mg Tablet 15 MG PO QAM (Reported) Omeprazole (Omeprazole) 40 Mg Capsule.dr 40 MG PO HS (Reported) Paroxetine HCl (Paroxetine Cr) 25 Mg Tab.er.24h 25 MG PO HS (Reported) As needed Diazepam (Diazepam) 2 Mg Tablet 2 MG PO HS PRN PRN Insomnia (Reported) Tadalafil (Cialis) 10 Mg Tablet 10 MG PO PRN PRN PRN Life style (Reported) Followup Plan Disposition: Home in stable condition Follow-up plan Follow up with PCP in 1 week for Sodium and renal function testing Follow up in 1 month with nephrology, DR Najera or further evaluation. Discharge Diet: Other (Limit fluid intake to ~2L or less. ) Discharge Activity: No restrictions Follow-up Provider: Kevin Mendoza MD Follow-up with PCP in: 1 week Time spent 40 minutes copies to: Kevin Mendoza MD Vital Signs Vital Sign - Last Date Time Temp Pulse Resp B/P Pulse Ox O2 Delivery O2 Flow Rate FiO2 01/17/17 09:26 36.9 82 18 117/75 96 Room Air Intake and Output 01/16/17 01/16/17 01/17/17 Cumulative From/Thru 15:00 23:00 07:00 01/15/17 12:16 - 01/17/17 06:16 Intake Total 700 ml 100 ml 2450 ml Output Total 1050 ml 300 ml 4600 ml Balance -350 ml -200 ml -2150 ml Intake Oral 700 ml 100 ml 1400 ml IV Total 1050 ml Output Urine Total 1050 ml 300 ml 4600 ml # Voids 1 # Bowel Movements 0 0 Lab and Diagnostics Result Diagram: 01/15/17 1214 01/17/17 0850 Wallace Noriega DO Jan 17, 2017 10:29
--- NOTE | 2017-01-17 10:32 | PCM.DIMED ---
Discharge Instructions Date of Service Jan 17, 2017 Dates of Hospitalization Jan 15, 2017 at 14:23 Discharge Diagnosis Discharge Diagnosis 1. Hyponatremia secondary to diuretic use (HCTZ) 2. Acute renal insufficiency: chronic condition. 3. Hypertension. 4. Gastroesophageal reflux disease Diet Discharge Diet: Other (Limit fluid intake to ~2L or less. ) Activity Discharge Activity: No restrictions Patient Instructions Follow-up plan Follow up with PCP in 1 week for Sodium and renal function testing Follow up in 1 month with nephrology, DR Najera or further evaluation. Follow-up Provider: Kevin Mendoza MD Follow-up with PCP in: 1 week Wallace Noriega DO Jan 17, 2017 10:32
--- NOTE | 2017-01-17 10:44 | NUR ---
Social Work: Discharge D: EMR reviewed. Pt is on day 2 of hospitalization. Pt's family to provide transport home at discharge. SW provided phone number and plan on white board in room. No discharge needs. SW will continue to follow if needs arise. A:Pt who is independent at baseline. P:Pt to discharge home today via POV. No discharge needs identified. SW will continue to follow if needs arise. ALLEN Tomlinson
--- NOTE | 2017-01-17 11:55 | NUR ---
Discharge Pt discharged at this time, VSS, no complains of increased pain, All belongings gathered and returned to pt. Home medications removed from med drawer and returned to pt. Discharge packet printed and reviewed with pt and spouse. Pt declined offer of wheelchair. Pt escorted from [facility] by [employer] to elevator, steady gait observed.
== END 2017-01-17 12:00 | disposition home or self-care (01) | DRG 645 ==
LOC: SED 12:07 → MPC 14:23
PROVIDERS: ADMIT Family Medicine; ATTEND Family Medicine
DX: E22.2 Syndrome of inappropriate secretion of antidiuretic hormone (principal); I10 Essential (primary) hypertension; E78.5 Hyperlipidemia, unspecified; M10.9 Gout, unspecified; E03.9 Hypothyroidism, unspecified; G50.0 Trigeminal neuralgia; E83.42 Hypomagnesemia